=== PATIENT | male | born 1965 | race Caucasian/White ===

== ENCOUNTER 2018-02-10 09:09 | Day surgery (SDC) | payer OTHER ==
[2018-02-05 14:53] VITALS: BMI 23.3
[~2018-02-10 09:09] MED LIST: LACTATED RINGERS 1,000 ML IV SCH
[2018-02-10 09:42] VITALS: RESP 16; TEMP 98.2
[2018-02-10] MEDS ORDERED: LIDOCAINE 1% 20 ML VIAL (10MG/ML) FOR IV START INTRADERMA ONE (09:43)
[2018-02-10] MEDS ORDERED: PROPOFOL 10 MG/ML 20 ML VIAL IV ONE (09:51)
--- NOTE | 2018-02-10 09:55 | P.GSHP ---
History of Present Illness H&P Date: 02/10/18 Chief Complaint: History of colon polyps This is a 52-year-old male referred from Dr. Drew paige. Patient rents today for colonoscopy. He has a history of colon polyps. Past Medical History Past Medical History: Hyperlipidemia, Hypertension, Osteoarthritis (OA), Thyroid Disorder History of Any Multi-Drug Resistant Organisms: None Reported Past Surgical History: No Surgical Hx Reported Additional Past Surgical History / Comment(s): colonoscopy Past Anesthesia/Blood Transfusion Reactions: No Reported Reaction Smoking Status: Current every day smoker - Past Family History Father Family Medical History: Cancer Additional Family Medical History / Comment(s): colon cancer x2 Medications and Allergies Home Medications Medication Instructions Recorded Confirmed Type Aspirin/Acetaminophen/Caffeine 1 each PO DAILY PRN 02/05/18 02/05/18 History [Excedrin Migraine Caplet] Benazepril HCl 20 mg PO DAILY 02/05/18 02/05/18 History Cyclobenzaprine [Flexeril] 5 mg PO TID PRN 02/05/18 02/05/18 History HYDROcodone/APAP 5-325MG [[place] 1 tab PO Q6H PRN 02/05/18 02/05/18 History 5-325] Simvastatin [Zocor] 80 mg PO DAILY 02/05/18 02/05/18 History Allergies Allergy/AdvReac Type Severity Reaction Status Date / Time No Known Allergies Allergy Verified 02/10/18 09:31 Surgical - Exam Vital Signs Temp Pulse Resp BP Pulse Ox 98.2 F 84 16 131/81 96 02/10/18 09:41 02/10/18 09:41 02/10/18 09:41 02/10/18 09:41 02/10/18 09:41 - General well developed, no distress - Eyes PERRL - ENT normal pinna - Neck no masses - Respiratory normal expansion - Cardiovascular Rhythm: regular - Abdomen Abdomen: soft, non tender Assessment and Plan Assessment: History y of colon Polyps. We'll perform colonoscopy.
--- NOTE | 2018-02-10 10:07 | P.OP ---
Date of Procedure: 02/10/18 Preoperative Diagnosis: History of colon polyps Postoperative Diagnosis: Normal colonoscopy Procedure(s) Performed: Colonoscopy Anesthesia: MAC Surgeon: Richie Gómez Pathology: none sent Condition: stable Disposition: PACU Description of Procedure: PROCEDURE: The patient was placed on the endoscopy table in the lateral position. Digital rectal examination was performed which revealed no abnormalities. The prostate was symmetrical without nodules. Flexible colonoscope was then placed in the patient's anus and passed throughout the entire colon. The ileocecal valve was visualized. The cecum, ascending, transverse, descending and sigmoid colon were normal. The rectum was normal as well. There were no masses, polyps or diverticula noted in the entire colon. SUMMARY OF FINDINGS: Normal colonoscopy.
[2018-02-10 10:43] VITALS: BP 106/72; PULSE 87
== END 2018-02-10 10:57 | disposition home or self-care (01) ==
LOC: ORWHC2ENDO 09:09
PROVIDERS: ATTEND Surgery
DX: Z12.11 Encounter for screening for malignant neoplasm of colon (principal); Z86.010 Personal history of colon polyps; E78.5 Hyperlipidemia, unspecified; I10 Essential (primary) hypertension; M19.90 Unspecified osteoarthritis, unspecified site; E07.9 Disorder of thyroid, unspecified; F17.200 Nicotine dependence, unspecified, uncomplicated; Z79.899 Other long term (current) drug therapy
CPT/HCPCS: J2704; G0105

== ENCOUNTER → 2020-11-20 | Outpatient (CLI) | payer OTHER ==
--- NOTE | 2020-11-20 14:06 | XR ---
EXAMINATION TYPE: XR chest 2V DATE OF EXAM: 11/20/2020 COMPARISON: Chest x-ray 05/09/2015 HISTORY: Pain in left shoulder, preop TECHNIQUE: Frontal and lateral views of the chest are obtained. FINDINGS: There is no focal air space opacity, pleural effusion, or pneumothorax seen. Strand-like d ensity at the left costophrenic angle may represent subsegmental atelectatic change or scarring. The cardiac silhouette size is within normal limits. The osseous structures are intact. IMPRESSION: May be some minimal basilar atelectasis or scarring
== END | disposition home or self-care (01) ==
LOC: RADXRMAIN 13:29
PROVIDERS: ATTEND Neurological Surgery
DX: Z01.818 Encounter for other preprocedural examination (principal)
CPT/HCPCS: 71046